=== PATIENT | male | born 1965 | race Caucasian/White ===

== ENCOUNTER 2023-09-20 11:28 | Emergency (ER) | payer OTHER ==
[2023-09-20 11:34] VITALS: RESP 20; TEMP 98; BMI 26.9
[2023-09-20] MEDS ORDERED: DIPHTH,PERTUSS(ACELL),TET 0.5 ML DISP.SYRIN IM ONE ×2 (12:19→12:44)
[2023-09-20 12:21] VITALS: BP 166/106; PULSE 91
== END 2023-09-20 13:05 | disposition home or self-care (01) ==
LOC: JERFT 11:28
PROC: 3E0234Z Introduction of Serum, Toxoid and Vaccine into Muscle, Percutaneous Approach (ICD-10-PCS; principal; 2023-09-20)
DX: S01.511A Laceration without foreign body of lip, initial encounter (principal); W20.8XXA Other cause of strike by thrown, projected or falling object, initial encounter; Y99.0 Civilian activity done for income or pay
CPT/HCPCS: 90715; 99282-25

== ENCOUNTER 2024-02-08 23:50 | Emergency (ER) | payer BC, OTHER ==
[2024-02-09 00:05] VITALS: BP 124/84; PULSE 78; RESP 18; TEMP 98.2; BMI 27.3
== END 2024-02-09 01:39 | disposition home or self-care (01) ==
LOC: JER 23:50
DX: S00.03XA Contusion of scalp, initial encounter (principal); F10.929 Alcohol use, unspecified with intoxication, unspecified; W01.198A Fall on same level from slipping, tripping and stumbling with subsequent striking against other object, initial encounter
CPT/HCPCS: 70450-TC; 72125-TC; 99284-25